=== PATIENT | male | born 1960 | race Caucasian/White ===

== ENCOUNTER 2025-03-20 13:06 | Emergency (ER) | payer OTHER, SELFPAY ==
[2025-03-20 13:09] VITALS: BP 190/111
[2025-03-20 13:25] VITALS: BP 184/96
[2025-03-20 13:56] VITALS: BMI 44.2
[2025-03-20 14:00] VITALS: BP 182/90
[2025-03-20 14:17] LABS: % Basophils 0.3 % (0-2); % Eosinophils 2.3 % (0-6); % Immature Granulocytes 0.4 % (0-0.5); % Lymphocytes 17.3 % (20.5-51.1); % Monocytes 5.6 % (1.7-9.3); % Neutrophils 74.1 % (42.2-75.2); Absolute Eosinophils 0.2 10^3/uL (0-0.7); Absolute Lymphocytes 1.7 10^3/uL (1.2-3.4); Absolute Monocytes 0.6 10^3/uL (0.1-0.6); Absolute Neutrophils 7.3 10^3/uL (1.4-6.5); Hematocrit 43.5 % (39.0-52.0); Hemoglobin 15.2 g/dL (13.0-18.0); Mean Corp Hgb Conc. 34.9 g/dL (33.0-37.0); Mean Corpuscular Hgb 30.7 pg (27.0-31.0); Mean Corpuscular Volume 87.9 fL (80.0-94.0); Mean Platelet Volume 9.3 fL (7.4-10.4); Nucleated Red Blood Cells % 0 % (-); Platelet Count 238 10^3/uL (130-400); Red Blood Cell Count 4.95 10^6/uL (4.70-6.10); Red Cell Dist. Width 13.4 % (11.5-14.5); White Blood Cell Count 9.9 10^3/uL (4.8-10.8)
[2025-03-20] MEDS: NSS 1000 IV (14:26)
[2025-03-20 14:28] LABS: ALT (SGPT) 35 U/L (0-50); AST (SGOT) 23 U/L (17-59); Albumin 4.3 g/dl (3.5-5.0); Alkaline Phosphatase 63 U/L (38-126); Blood Urea Nitrogen 19 mg/dl (9-20); Calcium 8.9 mg/dl (8.4-10.2); Carbon Dioxide 24 mmol/L (22-30); Chloride 112 mmol/L (98-107); Estimated Creatinine Clearance > 125 ml/min; Glucose 152 mg/dl (70-99); Magnesium 2.2 mg/dl (1.6-2.3); Potassium 3.8 mmol/L (3.5-5.1); Sodium 143 mmol/L (135-145); Total Bilirubin 0.7 mg/dl (0.2-1.3); Total Protein 7.1 g/dl (6.3-8.2); eGFR > 60.00
[2025-03-20 14:41] VITALS: BP 142/96
--- NOTE | 2025-03-20 14:46 | ED.GENMED ---
History of Present Illness
General
Chief Complaint: Chest Pain
Source: patient
Exam Limitations: none
Time Seen by Provider: 03/20/25 13:31
Nursing documentation reviewed up to this point in time: agreed with
History of Present Illness
History of Present Illness:
Patient is a 64-year-old male who presents to the emergency department for evaluation of heart palpitations. He states that he intermittently feels a fluttering sensation in his chest however it has been more noticeable over this past week. He
states that these palpitations occur 'randomly' and denies any true exertional component. He felt that earlier today these were occurring [id number] prompting visit to the emergency department.
He denies any associated chest pain, shortness of breath, lightheadedness or dizziness. Patient denies any recent viral symptoms. He denies any pain or swelling in lower extremities. He has had no recent travel or recent surgeries. No exogenous
hormone use. No history of thyroid disorders.
He has never been seen by internal communications specialist.
Review of Systems
Review of Systems
Allergies reviewed?: Yes
All Other Systems: ROS reviewed and negative except as documented in HPI and ROS
Phy Exam
Physical Exam
Physical Exam:
Vitals: Hypertensive, otherwise vital signs stable. Afebrile
General: Patient is very well appearing, no acute distress
Skin: Warm and dry, no rashes or lesions
Head: Normocephalic, atraumatic
Eyes: Sclera nonicteric. EOMs intact. No nystagmus.
Throat: Protecting airway
Neck: Normal ROM, no cervical spine tenderness, no meningismus
Cardiac: Regular rate and rhythm, no murmurs. No reproducible chest wall tenderness
Pulm: Normal respiratory effort, no wheezes, rales, rhonchi heard on exam
.
Abdomen: Abdomen soft and nontender.
Extremities: No evidence of cyanosis or edema
Neuro: AAOx3. Grossly intact.
Psychiatric: Normal affect.
Scores
Heart Score for Chest Pain Patients
STEMI patient?: No
History: Slightly or Non-Suspicious
ECG: Normal
Age: >45 - <65 years
Risk Factors: 1 or 2 Risk Factors
Troponin: </= Normal Limit
Heart Score for Chest Pain Patients: 2
Heart Score Risk: 2.5% MACE over next 6 weeks
Course
Orders/Labs/Results
Orders:
Orders
03/20/25 13:08
Electrocardiogram (*1) Urgent
Reason for Study: Chest Pain
EKG- Treatment ONCE
03/20/25 13:53
0.9% Sodium Chloride 1000 ml [Nss] 1,000 ml IV BOLUS
03/20/25 13:56
Complete Blood Count/With Diff Urgent
Comprehensive Metabolic Panel Urgent
Magnesium Urgent
TSH Reflex To Free T4 Urgent
Troponin I Urgent
Abnormal Lab Results
03/20/25
13:56
Absolute Neuts (auto) 7.3 H 10^3/uL
(1.4-6.5)
Lymphocytes % 17.3 L %
(20.5-51.1)
Chloride 112 H mmol/L
(98-107)
Glucose 152 H mg/dl
(70-99)
03/20/25 13:56
03/20/25 13:56
Vital Signs
Initial and Last Documented VS:
Initial Vital Signs
Temp Pulse Resp BP Pulse Ox
98.9 F 90 16 190/111 97
03/20/25 13:09 03/20/25 13:09 03/20/25 13:09 03/20/25 13:09 03/20/25 13:09
Last Documented Vital Signs
Temp Pulse Resp BP Pulse Ox
98.9 F 87 18 140/88 98
03/20/25 13:09 03/20/25 15:55 03/20/25 15:55 03/20/25 15:55 03/20/25 15:55
MDM/Problems Addressed
Differential Diagnosis Includes:
Not limited to: Acute dehydration, hyperthyroid, cardiac arrhythmia, PVCs, viral illness, etc.
MDM/Problems Addressed:
64-year-old male presenting with intermittent heart palpitations not associated with chest pain, shortness of breath, lightheadedness or episodes of syncope. No exertional or pleuritic component to the symptoms. Patient hypertensive with otherwise
stable vital signs. Physical exam as above. Patient very well-appearing, no apparent distress. Heart regular rate and rhythm. Lungs are clear bilaterally. An EKG obtained in triage reveals normal sinus rhythm without evidence of arrhythmia.
While I was in patient's room�I did notice 1 PVC on the monitor which correlated with patient's symptoms. ED plan: Check basic labs, TSH. Give IV fluids. Continue on cardiac monitoring
Update: Labs reviewed. CBC and chemistry without clinically significant abnormalities. Troponin undetectable. TSH within normal range. On reassessment following IV fluids�patient states he is feeling much better. He has had no additional
palpitations since the 1 witnessed PVC while I was in the room on the initial evaluation. Ultimately�feel symptoms likely secondary to PVCs. Very few noticed while in the emergency department and no evidence of other arrhythmia on cardiac
monitoring. Possibly related to dehydration. Feel stable for discharge home with cardiology follow-up outpatient. Strict return precautions discussed. Patient comfortable with plan.
Chronic conditions affecting care:
N/A
Acute Exacerbation and/or Progression of Chronic Illness:
N/A
*Pulse Oximetry
SaO2: 95
Oxygen Mode of Delivery: Room air
Patient hypoxic: no
*EKG
Interpreted by ED Provider?: Yes
EKG Intrepretation Date: 03/20/25
Interpretation: abnormal
Comparison EKG: no comparison EKG present
Rate: normal
Rhythm: sinus
[place]: normal axis
Interval: normal QT interval
QRS Pattern: left vent hypertrophy
Ischemia: non-specific ST changes
*Field Collector Interpretation
Rate: normal
Interpretation: normal
Heart Rate: 86
Rhythm: sinus
*Critical Care Note
Total Time (30-74mins, 75-104mins- exclusive of procedures): Not Applicable
Patient Management
Escalation/DeEscalation of care consider admission/obs:
Admit not indicated
ED Attending Note
-
Portions of this chart may have been created with voice recognition software.� Occasional wrong word or��sound alike� substitutions may have occurred due to the inherent limitations of voice recognition software.
Discharge Plan
Departure
Patient Disposition: Home (Routine Discharge)
Date of Disposition: 03/20/25
Time of Disposition: 15:45
Patient with high blood pressure during this ER visit?: Yes
Covid-19: Not Applicable
Discharge Problem:
Palpitations
Instructions: Palpitations - ED discharge instructions, BLOOD PRESSURE
Referrals:
Ben Carmichael MD [Active, Cardiology] - Call in 1-3 days for appt
Deangelo Crowder MD [Family Provider, Family Practice]
Activity Restrictions/Additional Instructions:
RETURN TO THE EMERGENCY DEPARTMENT ANY CHEST PAIN, SHORTNESS OF BREATH, LIGHTHEADEDNESS/DIZZINESS, RACING HEART, SIGNS OF SEVERE DEHYDRATION, WORSENING IN CURRENT SYMPTOMS, OR ANY OTHER CONCERNS
- As discussed that your lab work showed no acute abnormalities the emergency department. Your thyroid level is normal. You received a liter of IV fluids.
- While on the monitor�we observed only a few PVCs.
- It is important to stay well-hydrated and get plenty of rest.
- Follow-up with cardiology for further evaluation/management and to ensure that symptoms improve. You may require a Holter monitor for further evaluation
Monitor your symptoms closely and return to the emergency department with any acute worsening/new symptoms or any other concerns
Interventions
Interventions:
*Risk Screen - Suicide Last Done: 03/20/25 13:09
*General Assessment Last Done: 03/20/25 13:09
*Neglect/Abuse Screening Last Done: 03/20/25 13:09
*ED- Fall Risk Assessment Last Done: 03/20/25 13:09
*ED COVID-19 Vaccine History Last Done: 03/20/25 13:09
*Nursing Disposition Last Done: 03/20/25 15:55
ED- Cardiac Assessment Last Done: 03/20/25 13:59
Discharge Date and Time
Discharge Date/Time: 03/20/25 16:43
Print Language: FRISIAN
[2025-03-20 14:51] LABS: Troponin I < 0.012 ng/ml
[2025-03-20 14:58] LABS: TSH Reflex To Free T4 0.58 uIU/ml (0.47-4.68)
[2025-03-20 15:55] VITALS: BP 140/88
== END 2025-03-20 16:43 | disposition home or self-care (01) ==
LOC: EMR 13:06
PROVIDERS: Physician Assistant; EMERGENCY PHYSICIAN Emergency Medicine; FAMILY PHYSICIAN Family Medicine
DX: R00.2 Palpitations (principal); I49.3 Ventricular premature depolarization
CPT/HCPCS: 99283; 96360; 80053; 83735; 84443; 84484; 85025; 93005